=== PATIENT | male | born 1980 | race Caucasian/White ===

== ENCOUNTER → 2020-04-25 | Outpatient (CLI) | payer OTHER ==
--- NOTE | 2020-04-25 13:10 | RAD ---
Examination: MRI of the left knee without contrast HISTORY: History of posterior knee pain, twisting COMPARISON: None available. FINDINGS: The anterior cruciate ligament, posterior cruciate ligament appear intact. There is attenuation of the body and posterior horn of the medial meniscus with increased signal identified in the undersurface of the body and medial meniscus likely tear. There is mild extrusion the medial meniscus medially. The lateral meniscus appears intact. The extensor mechanism is intact. The medial collateral ligament is intact. Lateral collateral ligamentous complex including the fibular collateral ligament, biceps femoris tendon, popliteus tendon appears intact. Moderate knee joint effusion with small popliteal cyst. Moderate joint space loss identified in the medial, lateral, patellofemoral compartments. The medial, lateral retinaculum appears intact. There is superficial fraying of cartilage identified in the medial, lateral, patellofemoral compartments. IMPRESSION: 1. Tear of the body and posterior horn of the medial meniscus with mild extrusion of the medial meniscus medially. 2. Moderate degenerative changes with small popliteal cyst. 3. Moderate tricompartmental degenerative changes most in the medial compartment. Electronically signed by: William Ivy MD (04/25/2020 1:08 PM) [id number]
--- NOTE | 2020-04-25 17:10 | RAD ---
LUMBAR SPINE 2-3V History: Reason: MRI CLEARENCE / Spl. Instructions: / History: Technique: 2 views lumbar spine. Comparison: None. Findings: Metallic foreign bodies within the posterior paraspinal lumbar soft tissues. Largest metallic foreign body measures 1.7 cm. Multilevel lumbar spondylosis most prominent L3-L4 and L4-5. Normal vertebral body height. No fracture. L4 limbus vertebra. Lower lumbar facet arthropathy. Impression: 1. Metallic foreign bodies within the posterior paraspinal soft tissues. 2. Multilevel lumbar spondylosis. Electronically signed by: Chris Garcia DO (04/25/2020 5:07 PM) [facility]
== END | disposition home or self-care (01) ==
LOC: EEVIPCON 11:15 → MRI 11:31
PROVIDERS: ATTEND Preventive Medicine Occupational Medicine
DX: S30.850A Superficial foreign body of lower back and pelvis, initial encounter (principal); S83.242A Other tear of medial meniscus, current injury, left knee, initial encounter; M47.816 Spondylosis without myelopathy or radiculopathy, lumbar region; M17.12 Unilateral primary osteoarthritis, left knee; M25.462 Effusion, left knee; M71.22 Synovial cyst of popliteal space [Baker], left knee; X58.XXXA Exposure to other specified factors, initial encounter; Y93.89 Activity, other specified; Y92.89 Other specified places as the place of occurrence of the external cause; Y99.8 Other external cause status
CPT/HCPCS: 72100; 73721